=== PATIENT | male | born 1980 ===

== ENCOUNTER 2018-07-06 19:48 | Emergency (ER) | payer OTHER ==
[2018-07-06 20:55] VITALS: BP 148/73; PULSE 64; RESP 18; TEMP 98.6; O2SAT 100
--- NOTE | 2018-07-06 21:33 | ED PDOC ---
HPI: Skin/Bite Injury Time Seen by Provider: 07/06/18 21:08 Chief Complaint (Nursing): Abnormal Skin Integrity Chief Complaint (Provider): Rash History Per: Patient History/Exam Limitations: no limitations Onset/Duration Of Symptoms: Days (x 1 week) Location Of Injury: Left: Back, Chest Quality Of Symptoms: Painful Additional Complaint(s): 37 year old male with no significant medical history presents to the ED with a burning rash across the left side of his chest and towards his back for the last week. Patient reports that the skin is very sensitive. He took paracetamol for the pain without relief. Rash appears to be worsening, prompting ED visit. He also complains of a subjective fever and chills. Patient admits he is under a lot of stress at work and states that he had the chicken pox as a child. Denies other infectious symptoms like cough, vomiting, runny nose and diarrhea. PMD: none provided Past Medical History Reviewed: Historical Data, Nursing Documentation, Vital Signs Vital Signs: Last Vital Signs Temp 98.6 F 07/06/18 20:53 Pulse 64 07/06/18 20:53 Resp 18 07/06/18 20:53 BP 148/73 07/06/18 20:53 Pulse Ox 100 07/06/18 20:53 - Medical History PMH: No Chronic Diseases - Surgical History Surgical History: No Surg Hx - Family History Family History: States: No Known Family Hx - Social History Current smoker - smoking cessation education provided: Yes - Home Medications Home Medications: Ambulatory Orders Medication Instructions Recorded Famotidine [Pepcid] 20 mg PO HS #20 tab 12/14/14 Ibuprofen [Motrin] 600 mg PO Q6H #20 tab 12/14/14 oxyCODONE/Acetaminophen [Percocet 1 tab PO QID PRN #10 tab 12/14/14 5/325 mg Tab] Calamine/Pramoxine [Caladryl] 180 ml EXT PRN PRN #1 bottle 07/06/18 RX: Acyclovir [Zovirax] 400 mg PO 5XD #50 tablet 07/06/18 RX: Ibuprofen [Motrin Tab] 600 mg PO Q8 PRN #60 tab 07/06/18 - Allergies Allergies/Adverse Reactions: Allergies Allergy/AdvReac Type Severity Reaction Status Date / Time No Known Allergies Allergy Unverified 07/06/18 20:53 Review of Systems ROS Statement: Except As Marked, All Systems Reviewed And Found Negative Constitutional: Positive for: Fever, Chills Skin: Positive for: Rash Physical Exam - Reviewed Nursing Documentation Reviewed: Yes Vital Signs Reviewed: Yes - Physical Exam Appears: Positive for: Non-toxic, No Acute Distress Skin: Positive for: Warm, Dry, Rash (band like rash anterior chest wall starting at sternum across left chest and axillary lines to left flank; papular rash with erythematous base in groups; does not cross midline) Eye Exam: Positive for: EOMI, PERRL ENT: Positive for: Normal ENT Inspection Neck: Positive for: Painless ROM, Supple Cardiovascular/Chest: Positive for: Regular Rate, Rhythm. Negative for: Murmur Respiratory: Positive for: Normal Breath Sounds. Negative for: Wheezing, Respiratory Distress Gastrointestinal/Abdominal: Positive for: Soft. Negative for: Tenderness Back: Positive for: Normal Inspection. Negative for: Muscle Spasm Extremity: Positive for: Normal ROM. Negative for: Deformity Lymphatic: Negative for: Adenopathy Neurologic/Psych: Positive for: Alert. Negative for: Motor/Sensory Deficits - ECG O2 Sat by Pulse Oximetry: 100 (RA) Pulse Ox Interpretation: Normal Medical Decision Making Medical Decision Makin:38 Impression: herpes zoster Plan: Patient requires no further treatment at this time and is stable. He will be discharged with prescriptions for Zovirax and Motrin. Return precautions provided. --- Scribe Attestation: Documented by Claudia Coats acting as a scribe for Amanda Matt MD Provider Scribe Attestation: All medical record entries made by the Scribe were at my direction and personally dictated by me. I have reviewed the chart and agree that the record accurately reflects my personal performance of the history, physical exam, medical decision making, and the department course for this patient. I have also personally directed, reviewed, and agree with the discharge instructions and disposition. Disposition - Clinical Impression Clinical Impression: Herpes zoster Counseled Patient/Family Regarding: Studies Performed, Diagnosis, Need For Followup, Rx Given - Disposition Referrals: [facility] [Outside] Disposition: Routine/Home Disposition Time: 21:36 Condition: STABLE Prescriptions: RX: Acyclovir [Zovirax] 400 mg PO 5XD #50 tablet Calamine/Pramoxine [Caladryl] 180 ml EXT PRN PRN #1 bottle PRN Reason: Itching / Pruritus RX: Ibuprofen [Motrin Tab] 600 mg PO Q8 PRN #60 tab PRN Reason: Pain, Moderate (4-7) Instructions: Shingles (DC) Forms: [facility] ED School/Work Excuse Print Language: [place]
== END 2018-07-06 23:06 | disposition home or self-care (01) ==
LOC: H.ER 19:48
DX: B02.9 Zoster without complications (principal); F17.200 Nicotine dependence, unspecified, uncomplicated

== ENCOUNTER 2018-07-09 15:24 | Emergency (ER) | payer OTHER ==
[2018-07-09 16:18] VITALS: RESP 18; O2SAT 99
--- NOTE | 2018-07-09 18:34 | ED PDOC ---
HPI: Skin/Bite Injury Time Seen by Provider: 07/09/18 17:18 Chief Complaint (Nursing): Abnormal Skin Integrity Chief Complaint (Provider): Abnormal Skin Integrity History Per: Patient History/Exam Limitations: no limitations Onset/Duration Of Symptoms: Days (x10) Current Symptoms Are (Timing): Still Present Additional Complaint(s): 37 year old male presents to the ED complaining of a painful rash to the left chest, left flank, and left back for 10 days. Patient was seen here 3 days ago and was diagnosed with Herpes Zoster and was discharged with Acyclovir. Patient reports she has been taking Motrin for pain but states it is not strong enough, he is having difficulty sleeping secondary to pain. He denies fever. PMD: none Past Medical History Reviewed: Historical Data, Nursing Documentation, Vital Signs Vital Signs: Last Vital Signs Temp 98.1 F 07/09/18 16:16 Pulse 78 07/09/18 16:16 Resp 18 07/09/18 16:16 BP 131/82 07/09/18 16:16 Pulse Ox 99 07/09/18 16:16 - Medical History PMH: No Chronic Diseases - Surgical History Surgical History: No Surg Hx - Family History Family History: States: Unknown Family Hx - Home Medications Home Medications: Ambulatory Orders Medication Instructions Recorded Famotidine [Pepcid] 20 mg PO HS #20 tab 12/14/14 Ibuprofen [Motrin] 600 mg PO Q6H #20 tab 12/14/14 oxyCODONE/Acetaminophen [Percocet 1 tab PO QID PRN #10 tab 12/14/14 5/325 mg Tab] Calamine/Pramoxine [Caladryl] 180 ml EXT PRN PRN #1 bottle 07/06/18 RX: Acyclovir [Zovirax] 400 mg PO 5XD #50 tablet 07/06/18 RX: Ibuprofen [Motrin Tab] 600 mg PO Q8 PRN #60 tab 07/06/18 oxyCODONE/Acetaminophen [Percocet 1 tab PO Q8 #12 tab 07/09/18 5/325 mg Tab] - Allergies Allergies/Adverse Reactions: Allergies Allergy/AdvReac Type Severity Reaction Status Date / Time No Known Allergies Allergy Unverified 07/06/18 20:53 Review of Systems ROS Statement: Except As Marked, All Systems Reviewed And Found Negative Constitutional: Negative for: Fever Skin: Positive for: Rash (painful rash to left chest, left flank, and left back) Physical Exam - Reviewed Nursing Documentation Reviewed: Yes Vital Signs Reviewed: Yes - Physical Exam Appears: Positive for: Non-toxic, No Acute Distress Head Exam: Positive for: ATRAUMATIC, NORMOCEPHALIC Skin: Positive for: Rash (band like vesicular rash with scabbing across the left chest, left flank, and left back. ~T6 dermatome; with no signs of surrounding infection) Eye Exam: Positive for: Normal appearance Neck: Positive for: Normal, Painless ROM Extremity: Positive for: Normal ROM Neurologic/Psych: Positive for: Alert, Oriented. Negative for: Motor/Sensory Deficits - ECG O2 Sat by Pulse Oximetry: 99 (RA) Pulse Ox Interpretation: Normal Medical Decision Making Medical Decision Making: Initial Plan: Patient given a prescription for Ultram with precautions and advised to follow up with a doctor and to continue taking medications. Work note given to patient. Scribe Attestation: Documented by Keven Whiting acting as a scribe for Jessica CORTEZ. Provider Scribe Attestation: All medical record entries made by the Scribe were at my direction and personally dictated by me. I have reviewed the chart and agree that the record accurately reflects my personal performance of the history, physical exam, medical decision making, and the department course for this patient. I have also personally directed, reviewed, and agree with the discharge instructions and disposition. Disposition - Clinical Impression Clinical Impression: Herpes zoster - Patient ED Disposition Is Patient to be Admitted: No - Disposition Referrals: [facility] [Outside] Disposition: Routine/Home Disposition Time: 18:46 Condition: STABLE Prescriptions: oxyCODONE/Acetaminophen [Percocet 5/325 mg Tab] 1 tab PO Q8 #12 tab Instructions: [place] (DC) Forms: [facility] (Irish), [facility] ED School/Work Excuse Print Language: HAITIAN
[2018-07-09 18:53] VITALS: BP 122/74; PULSE 75; TEMP 98
== END 2018-07-09 18:51 | disposition home or self-care (01) ==
LOC: H.ER 15:24
DX: B02.9 Zoster without complications (principal)